=== PATIENT | male | born 1965 | race Hispanic/Latino ===

== ENCOUNTER 2016-11-21 20:01 | Emergency (ER) | payer OTHER ==
[~2016-11-21 20:01] MED LIST: ANTIVERT 25MG #1 PAC PO; ZOFRAN ODT4 MG PO
[2016-11-21 20:18] VITALS: BP 155/94
--- NOTE | 2016-11-21 20:50 | ED UPPER/LOWER EXTREMITY COMPL ---
History of Present Illness General Chief Complaint: General Adult Stated Complaint: LEFT THIGH BRUISE AND PAIN Source: patient Exam Limitations: no limitations Vital Signs & Intake/Output Vital Signs & Intake/Output Vital Signs Date Time Temp Pulse Resp B/P Pulse O2 O2 Flow FiO2 Ox Delivery Rate 11/21 2017 88 22 155/94 97 Room Air ED Intake and Output 11/22 0000 11/21 1200 Intake Total Output Total Balance Patient 185 lb Weight Allergies Coded Allergies: NO KNOWN ALLERGIES (11/21/16) Reconcile Medications Meclizine (Antivert) 25 MG PAC 1 TAB PO Q8P PRN DIZZINESS Ondansetron (Zofran Odt) 4 MG ODT 1 TAB PO Q6P PRN NAUSEA Triage Note: PER PT CAUGHT RT THIGH BETW A TRUCK AND BOARD, NOW WITH LARGE BRUISE, DENIES THINNERS DENIES ANY OTHER INJURY AMBULATORY WITHOUT PAIN Triage Nurses Notes Reviewed? yes Onset: Abrupt Duration: constant Timing: single episode today Severity: moderate Severity Numbers: 5 HPI: Patient is a 51-year-old male with an unremarkable past medical history since emergency and that while trying to maneuver a trailer to his hitch on the back of his pickup truck he lost control of the trailer which subsequently the hitch of the trailer has struck patient to the anterior aspect of his RIGHT inner thigh. Patient noted swelling and bruising immediately after and pain. Patient can tolerate weightbearing activities. No skin laceration NOR bleeding had occurred (MAXIM MEYER) Past History Travel History Traveled to [place] past 21 day No Medical History Any Pertinent Medical History? none Surgical History Surgical History: LAP BAND Psychosocial History What is your primary language Japanese Tobacco Use: Never used Family History Hx Contributory? No (MAXIM MEYER) Review of Systems Review of Systems Constitutional: Reports: no symptoms. EENTM: Reports: no symptoms. Respiratory: Reports: no symptoms. Cardiovascular: Reports: no symptoms. Gastrointestinal/Abdominal: Reports: no symptoms. Genitourinary: Reports: no symptoms. Musculoskeletal: Reports: see HPI. Skin: Reports: see HPI, change in skin color. Neurological/Psychological: Reports: no symptoms. Hematologic/Endocrine: Reports: no symptoms. Immunological: Reports: no symptoms. All Other Systems: Reviewed and Negative (MAXIM MEYER) Physical Exam Physical Exam General Appearance: no apparent distress, alert, comfortable Neurologic/Tendon: normal sensation, normal motor functions, normal tendon functions, responds to pain, no evidence tendon injury, no pulse deficit Skin: intact, warm/dry Comments: Well-developed well-nourished no apparent distress. HEENT: Atraumatic, extraocular motion intact Neck: Supple, no lymphadenopathy Back: Nontender Respiratory: No respiratory distress Extremities: Right hip 5 out of 5 resisted range of motion noted with flexion abduction and adduction Right knee full active range of motion nontender Right leg dermatomes intact Neuro: Alert and oriented x3 Psych: Mood affect normal, normal memory normal judgment. Diagram Legs Front/Back 1) 5 cm in diameter ecchymosis swelling tenderness Skin is intact (MAXIM MEYER) Progress Differential Diagnosis: arterial insufficiency, compartment syndrome, contusion, dislocation, DVT, fracture, gout, septic arthritis, sprain, tendon injury Plan of Care: Due to history of present illness and exam findings patient has concerns of right inner thigh hematoma and contusion. Patient has normal steady gait on discharge is no concerns at this time of fracture. Patient was neurovascularly intact to right lower extremity. I applied in a strap to patient's right leg contusion site with PRE/post neurovascular was intact. (MAXIM MEYER) Departure Departure Disposition: HOME OR SELF CARE Condition: Stable Clinical Impression Primary Impression: Contusion of right leg Referrals: NADINE BOJORQUEZ DO (PCP/Family) Additional Instructions: As discussed begin to apply ice to the area 20 minutes every 2 hours for pain and inflammation. Begin [id number]-[id number] ibuprofen for pain and inflammation. Begin using the Ángel wrap provided to YOU IN the emergency room for swelling. If no better in one week follow up with primary care doctor. If symptoms worsen return to emergency room Departure Forms: Customer Survey General Discharge Information (MAXIM MEYER) PA/BARTENDER MANAGER Co-Sign Statement Statement: ED Attending supervision documentation- [] I saw and evaluated the patient. I have also reviewed all the pertinent lab results and diagnostic results. I agree with the findings and the plan of care as documented in the PA's/BARTENDER MANAGER's documentation. [X] I have reviewed the ED Record and agree with the PA's/BARTENDER MANAGER's documentation. [] Additions or exceptions (if any) to the PAs/BARTENDER MANAGER's note and plan are summarized below: [] (JONAH OSBORN,JACQUELINE Abreu)
== END 2016-11-21 21:09 ==
LOC: ERH 20:01
DX: S80.11XA Contusion of right lower leg, initial encounter (principal); W22.8XXA Striking against or struck by other objects, initial encounter

== ENCOUNTER 2016-12-26 14:17 | Emergency (ER) | payer OTHER ==
[~2016-12-26] VITALS: Ht 162.6 cm; Wt 83.9 kg
[2016-12-26 14:21] VITALS: BP 161/102
[2016-12-26] MEDS ORDERED: ALLEGRA ALLERG180 M1 PO (14:23)
--- NOTE | 2016-12-26 14:54 | ED UPPER/LOWER EXTREMITY COMPL ---
History of Present Illness General Chief Complaint: Upper Extremity Problem Stated Complaint: RT SHOULDER PAIN X 2MNTHS Source: patient, family, old records Exam Limitations: no limitations Vital Signs & Intake/Output Vital Signs & Intake/Output Vital Signs Date Time Temp Pulse Resp B/P Pulse O2 O2 Flow FiO2 Ox Delivery Rate 12/26 1421 97.4 73 20 161/102 96 Room Air Allergies Coded Allergies: NO KNOWN ALLERGIES (11/21/16) Reconcile Medications Diclofenac Sodium 75 MG TABLET.DR 1 TAB PO BID PRN PAIN/INFLAMMATION Fexofenadine HCl (Danielle Allergy) 180 MG TABLET 1 TAB PO DAILY ALLERGIES ( Reported) Triage Note: PT TO ED C/O RIGHT SHOULDER PAIN X A FEW MONTHS. HAS TRIED OTC MEDS WITH NO RELIEF. DENIES ANY INJURY. Triage Nurses Notes Reviewed? yes HPI: Patient is a 51-year-old male presents complaining of right lateral shoulder pain for the past 2-3 months. Pain is an aching pain is currently mild to moderate. Pain is sometimes exacerbated by movement. Patient reports that he was on an airplane this past week and when the airplane was landing the pain became severe. Patient has been taking ibuprofen with no improvement. 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 Patient is right-hand dominant. Patient denies numbness, weakness, decreased range of motion (GILBERTO SRIVASTAVA) Past History Travel History Traveled to [place] past 21 day No Medical History Any Pertinent Medical History? see below for history Neurological: NONE EENT: NONE Cardiovascular: NONE Respiratory: ALLERGIES Gastrointestinal: NONE Hepatic: NONE Renal: NONE Musculoskeletal: NONE Psychiatric: NONE Endocrine: NONE Surgical History Surgical History: LAP BAND Psychosocial History What is your primary language Uzbek Tobacco Use: Never used ETOH Use: denies use Illicit Drug Use: denies illicit drug use Family History Hx Contributory? No (GILBERTO SRIVASTAVA) Review of Systems Review of Systems Constitutional: Denies: chills, fever. EENTM: Reports: no symptoms. Respiratory: Denies: cough, short of breath. Cardiovascular: Denies: chest pain, peripheral edema. Gastrointestinal/Abdominal: Denies: abdominal pain, nausea, vomiting. Genitourinary: Reports: no symptoms. Musculoskeletal: Reports: see HPI. Denies: back pain, neck pain. Skin: Reports: no symptoms. Neurological/Psychological: Denies: headache, numbness. Hematologic/Endocrine: Denies: bruising, bleeding. Immunological: Denies: splenectomy. (GILBERTO SRIVASTAVA) Physical Exam Physical Exam General Appearance: well developed/nourished, alert, awake Head: atraumatic, normal appearance Eyes: Bilateral: normal appearance, PERRL, EOMI. Ears, Nose, Throat: normal pharynx, normal ENT inspection, hearing grossly normal Neck: normal inspection, supple, full range of motion, no midline tenderness Cardiovascular/Respiratory: normal peripheral pulses, no respiratory distress Peripheral Pulses: 2+ radial (R) Gastrointestinal: soft, nontender, negative Hall sign Back: normal inspection, normal range of motion, no vertebral tenderness Shoulder Right: right lateral shoulder tenderness. Full range of motion. Pain increases with full abduction. Negative drop arm test. Elbow Right: normal range of motion, normal inspection, nontender Neurologic/Tendon: normal sensation, normal motor functions, normal tendon functions Skin: intact, normal color, warm/dry Lymphatic: no anterior cervical edwige (GILBERTO SRIVASTAVA) Progress Differential Diagnosis: gout, septic arthritis, sprain, tendon injury, AC separation, bursitis, adhesive capsilitis, rotator cuff injury Plan of Care: Orders Procedure Date/time Status XRY-SHOULDER COMPLETE-RIGHT 12/26 1513 Active 1613 12/26/16: Results of x-rays discussed with patient. Patient appears stable for conservative management and outpatient follow up. (GILBERTO SRIVASTAVA) Diagnostic Imaging: Viewed by Me: Radiology Read. Discussed w/RAD: Radiology Read. Radiology Impression: PATIENT: RADHA DUQUE PRESENT AGE: 51 PATIENT ACCOUNT NO: [id number] : 66 LOCATION: [facility] ORDERING PHYSICIAN: GILBERTO LE SERVICE DATE: 12/26/16-1513 EXAM TYPE: RAD - XRY-SHOULDER COMPLETE-RIGHT EXAMINATION: XR SHOULDER, RIGHT CLINICAL INFORMATION: Right shoulder pain. COMPARISON: None TECHNIQUE: AP external rotation, Grashey, scapular Y, and axillary views of the right shoulder. FINDINGS: Normal bony mineralization. No evidence of acute fracture or dislocation. Humeral head maintains normal round contour. Visualized right lung appears unremarkable. IMPRESSION: No acute osseous abnormality. DICTATED BY: MEGAN BAUMAN MD DATE/TIME DICTATED:12/26/161552 PHYSICIAN COMPENSATION ANALYST:REBECCA DATE/TIME TRANSCRIBED:12/26/161552 CONFIDENTIAL, DO NOT COPY WITHOUT APPROPRIATE AUTHORIZATION. <Electronically signed in Other Vendor System> SIGNED BY: MEGAN BAUMAN MD 12/26/16 1601 (GILBERTO SRIVASTAVA) Departure Departure Time of Disposition: 160 Disposition: HOME OR SELF CARE Condition: Stable Clinical Impression Primary Impression: Bursitis of shoulder, right Referrals: TEY OSBORN,JOYCE CAMARILLO DO,NADINE Bourgeois (PCP/Family) Additional Instructions: Follow up with Dr. Camarillo or with Dr. Ibarra(orthopedist) for further evaluation , call this afternoon or in the morning for appointment. Departure Forms: Customer Survey General Discharge Information Prescriptions: Current Visit Scripts Diclofenac Sodium 1 TAB PO BID PRN PAIN/INFLAMMATION #15 TAB (GILBERTO SRIVASTAVA) PA/DEER FARM WORKER Co-Sign Statement Statement: ED Attending supervision documentation- [] I saw and evaluated the patient. I have also reviewed all the pertinent lab results and diagnostic results. I agree with the findings and the plan of care as documented in the PA's/DEER FARM WORKER's documentation. [x] I have reviewed the ED Record and agree with the PA's/DEER FARM WORKER's documentation. [] Additions or exceptions (if any) to the PAs/DEER FARM WORKER's note and plan are summarized below: [] (ALYSSA DICKEY DO
--- NOTE | 2016-12-26 16:01 | RADIOLOGY REPORT ---
EXAMINATION: XR SHOULDER, RIGHT CLINICAL INFORMATION: Right shoulder pain. COMPARISON: None TECHNIQUE: AP external rotation, Grashey, scapular Y, and axillary views of the right shoulder. FINDINGS: Normal bony mineralization. No evidence of acute fracture or dislocation. Humeral head maintains normal round contour. Visualized right lung appears unremarkable. IMPRESSION: No acute osseous abnormality.
[2016-12-26] MEDS ORDERED: DICLOFENAC SODI75 M2 PO (16:08)
== END 2016-12-26 16:16 ==
LOC: ERH 14:17
DX: M75.51 Bursitis of right shoulder (principal)
CPT/HCPCS: 73030-RT